=== PATIENT | female | born 1945 | race Two or more races ===

== ENCOUNTER 2025-01-13 17:07 | Emergency (ER) | payer MEDICAID, SELFPAY ==
[2025-01-13 17:16] VITALS: BP 136/82; PULSE 62; RESP 16; TEMP 36.7; O2SAT 94; BMI 20.9
--- NOTE | 2025-01-13 17:20 | XR_ITS ---
Examination: Knee, left , 3 views Technique: Knee AP, lateral, oblique 3 views Date and time of exam: January 13, 2025 1721 hours INDICATIONS: Patient fell today with into the knee, knee pain. FINDINGS: No fracture or dislocation. Moderate narrowing medial patellofemoral joints Moderate knee effusion IMPRESSION: No fracture or dislocation
--- NOTE | 2025-01-13 17:21 | PD.EDRME ---
Rapid Medical Screening Exam [facility] Arrival date/time: 01/13/25 17:07 79-year-old female with no known medical history presents to the emergency room with a chief complaint of tenderness and swelling to her left knee. [place]. Patient denies any head injury or any pain or tenderness anywhere else. I have greeted and performed a focused initial assessment of this patient. A comprehensive ED assessment and evaluation of the patient, analysis of all test results, and completion of the medical decision making process will be conducted by additional ED providers. Chief Complaint: Fall Vital signs: Vital Signs Temperature 98.1 F 01/13/25 17:16 Pulse Rate 62 01/13/25 17:16 Respiratory Rate 16 01/13/25 17:16 Blood Pressure 136/82 H 01/13/25 17:16 Pulse Oximetry (%) 94 L 01/13/25 17:16 Oxygen Delivery Method Room Air 01/13/25 17:16 Vital signs reviewed by provider: Yes
[2025-01-13] MEDS: KETOROLAC INJ 60 MG/2 ML VIAL 30 MG IM (18:09)
--- NOTE | 2025-01-13 20:16 | EDNOTE_ITS ---
ED Fall Injury RME/HPI General Chief Complaint: Fall Stated Complaint: HAD A FALL LEFT KNEE PAIN Time Seen by Provider: 01/13/25 18:17 Arrival date/time: 01/13/25 17:07 RME / HPI RME / HPI Narrative: 79-year-old female with no known medical history presents to the emergency room with a chief complaint of tenderness and swelling to her left knee. Patient [place] on her knee. Patient denies an y head injury or any pain or tenderness anywhere else. Patient is able to ambulate. Incident happened earlier today. Related Data Previous Rx's ?Medication ?Instructions ?Recorded naproxen 500 mg tablet (Naprosyn) 500 mg PO BID PRN pa in #20 tabs 01/13/25 Allergies Allergy/AdvReac Type Severity Reaction Status Date / Time No Known Allergies Allergy Verified 01/13/25 17:10 Review of Systems Review of Systems Narrative Review of Systems: Review of system reviewed and within normal limits except mentioned in HPI ED Exam Narrative Physical exam: VITAL SIGNS: Reviewed. GENERAL APPEARANCE: Alert and interactive, follows commands, no acute distress, HEAD AND FACE: Non-traumatic. ENT: PERRL, pink conjunctivitis, eyelid no trauma, Mucous membrane moist. NECK: Supple, nontender, no nuchal rigidity. CHEST: No tenderness, no crepitus, no paradoxical movement, no retractions. LUNGS: Clear, well ventilated, symmetric, no rales, no wheezing, no ronchi, no stridor, good breath sounds bilaterally. HEART: Regular rate, regular rhythm, no murmur, no gallops. ABDOMEN: Soft, positive bowel sounds, nondistended, no guarding, nontender, no rebound, no masses, RECTAL: Deferred. GENITAL: Deferred. NEUROLOGICAL: Gross motor function intact sensory function intact, Appropriate for age. MUSCULOSKELETAL: low back nontender, full range of motion. EXTREMITIES: Left anterior knee tenderness, mild swelling no crepitus, full range of motion. Distal neurovascular status intact SKIN: Color pink, dry, no rash, no lacerations, no abrasions, no contusions. LYMPHATICS: Deferred. Course Quality Measures none Orders Category Date Time Status rambo wrap [Splint / Immobilizer] STAT Care 01/13/25 17:20 Active XR knee LT 3V Stat Exams 01/13/25 17:20 Completed Ketorolac Inj [Toradol Inj] Med 01/13/25 17:20 Discontinued 30 mg IM X1 ONE Vital Signs Vital signs: Vital Signs Temperature 98.1 F 01/13/25 17:16 Pulse Rate 62 01/13/25 17:16 Respiratory Rate 16 01/13/25 17:16 Blood Pressure 136/82 H 01/13/25 17:16 Pulse Oximetry (%) 94 L 01/13/25 17:16 Oxygen Delivery Method Room Air 01/13/25 17:16 Fall MDM Narrative MDM Narrative:: 79-year-old female with no known medical history presents to the emergency room with a chief complaint of tenderness and swelling to her left knee. Patient [place] on her knee. Patient denies any head injury or any pain or tenderness anywhere else. Patient is able to ambulate. Incident happened earlier today. X-ray of the knee came back unremarkable. Results discussed with the patient. Patient data External records reviewed:: None Clinical information provided by:: patient Social determinants that could affect healthcare access:: none Patient has the following chronic illnesses:: None How is presenting disease/condition affected by chronic disease/condition?: no chronic disease Evaluation data The following diagnostics were reviewed and interpreted by me:: radiology exam(s) Lab and/or radiology exams considered but not ordered:: None Interpretation Summary: X-ray came back with no fracturenoted as interpreted by me also. Medications / Prescriptions Medications or Prescriptions considered but not ordered:: None Medication administrations:: Medication Administration History Discontinued Medications Ketorolac Tromethamine (Ketorolac Inj 60 Mg/2 Ml Vial) 30 mg IM X1 ONE Stop: 01/13/25 17:21 Last Admin: 01/13/25 18:09 Dose: 30 mg Documented By: OA Toradol IM Consultations Consultation(s) initiated? (list below): No Diagnosis Fall Differential Diagnosis: other (Knee fracture dislocation knee contusion knee sprain) Most likely diagnosis given after review of the tests above:: Knee contusion Admission Indicated Admission indicated?: not indicated Admission Request Was there a request for admission?: No Disposition Plan Disposition Plan: Discharge Discharge Attestation Discharge Attestation: The patient and all family members were given an opportunity to ask questions and understood the discharge instructions. Discharge instructions specifically effects, indications for sooner follow up or return to the emergency department, and the expected course of current diagnosis. Patient condition: Stable Discharge Plan Plan Patient Disposition: HOME (Self Care) Discharge Disposition comment: Stable Prescriptions/Referrals Prescriptions/Med Rec: New naproxen [Naprosyn] 500 mg tablet 500 mg PO BID PRN (Reason: pain) Qty: 20 0RF Referrals: No Primary/Family,Physician [Primary Care Provider] - In 1 week Problem List Clinical Impression: Contusion of knee Patient/Caregiver Discharge Instructions Discharge Activity: activity as tolerated Education Materials: ED Contusion, Lower Extremity Additional Instructions: Thank you for the opportunity for serving you today. You are stable for discharged . You are advised to: Follow-up with your PCP in 1 to 2 days Return to ED for worsening of symptoms Increase oral fluids Take medication as prescribed X-ray of your knee did not show any fracture or dislocation. Print Language: Mohawk Stand Alone Forms: Shruthi Award Info., Patient Portal Info Letter CRYSTAL/HELENA Supervising Physician CRYSTAL/HELENA Supervising Physician: MD Grace
== END 2025-01-13 21:07 | disposition home or self-care (01) ==
PROVIDERS: Emergency Provider Emergency Medicine
DX: S80.02XA Contusion of left knee, initial encounter (principal); W01.0XXA Fall on same level from slipping, tripping and stumbling without subsequent striking against object, initial encounter
CPT/HCPCS: 73562; 96372; 99283; J1885